=== PATIENT | male | born 1985 | race Two or more races ===

== ENCOUNTER 2025-07-12 09:51 | Emergency (ER) | payer OTHER ==
[~2025-07-12] VITALS: Ht 188 cm; Wt 109.8 kg
[2025-07-12 10:33] VITALS: BP 128/84; O2SAT 97
[2025-07-12] MEDS ORDERED: COUMADIN PO (10:33)
[2025-07-12] MEDS ORDERED: MORPHINE SULFATE 4 MG/ML CARTRIDGE IV ONE ×2 (11:00→14:15)
[2025-07-12] MEDS ORDERED: ONDANSETRON HCL 2 MG/ML VIAL IV ONE (11:00)
[2025-07-12] MEDS ORDERED: FAMOtidine 10 MG/ML (4ML VIAL) IV ONE (11:00)
[2025-07-12] MEDS ORDERED: 0.9 % SODIUM CHLORIDE 1,000 ML IV ONE (11:00)
[2025-07-12] MEDS ORDERED: FAMOTIDINE/PF 20 MG/2 ML VIAL ONE (11:08)
[2025-07-12] MEDS ORDERED: ONDANSETRON HCL 2 MG/ML VIAL ONE (11:08)
[2025-07-12 11:15] LABS: BASO % 0.0 % (0.1-1.2); EOS # 0.00 (0.04-0.54); EOS % 0.0 % (0.7-7.0); LYMPH # 0.44 (1.18-3.74); LYMPH % 4.3 % (19.3-53.1); MEAN PLATELET VOLUME 11.00 fl (9.4-12.4); MONO # 0.54 (0.24-0.82); MONO % 5.3 % (4.7-12.5); NEUT # 9.20 (1.56-6.13); NEUT % 90.1 % (34.0-71.1); RED CELL DISTRIBUTION WIDTH 14.9 % (11.6-14.4)
[2025-07-12 11:45] LABS: ALT/SGPT 39.0 U/L (12-78); AST/SGOT 15.0 U/L (15-37); BILIRUBIN TOTAL 1.07 mg/dL (0.3-1.2); BILIRUBIN,CONJUGATED 0.33 mg/dL (0.0-0.2); BUN CREA RATIO 8.0 (7.0-25.0); CREATININE SERUM 1.08 mg/dL (0.70-1.30); GFR 75.35; GLOBULINA 3.3 G/DL (2.4-3.5); GLUCOSE FASTING 107.0 mg/dL (65-100); OSMOLALITY SERUM 280.0 MOSM/KG (275-295)
[2025-07-12 11:48] LABS: INR 1.76
[2025-07-12 11:48] LABS: URINE APPEARANCE Clear; URINE BILIRRUBIN Negative (NEGATIVE); URINE BLOOD Large; URINE COLOR Yellow; URINE GLUCOSE Negative (NEGATIVE); URINE LEUKOCYTE Negative; URINE NITRATE Negative; URINE PROTEIN Trace (NEGATIVE); URINE UROBILINOGEN 0.2 E.U./dl
[2025-07-12 11:52] LABS: URINE BACTERIA 7.1 uL (0.0-1933); URINE EPITHELIAL CELLS 2.7 uL (0.0-38.8); URINE RBC 46.3 uL (0.0-20.8); URINE WBC 6.4 uL (0.0-23.2)
[2025-07-12 12:22] LABS: URINE CAST 0.73 uL (0.0-1.40); URINE KETONE >=160 (NEGATIVE)
[2025-07-12] MEDS ORDERED: METHYLPREDNISOLONE SOD SUCC 40 MG VIAL ONE (13:30)
[2025-07-12] MEDS ORDERED: DIPHENHYDRAMINE HCL 50 MG/ML VIAL 1ML ONE (13:30)
[2025-07-12] MEDS ORDERED: DIPHENHYDRAMINE HCL 50 MG/ML VIAL 1ML IV ONE (13:45)
[2025-07-12] MEDS ORDERED: METHYLPREDNISOLONE SOD SUCC 40 MG VIAL IV ONE (13:45)
[2025-07-12] MEDS ORDERED: PEPCID AC20 MG PO (14:45)
[2025-07-12] MEDS ORDERED: NORFLEX100MG PO (14:45)
[2025-07-12] MEDS ORDERED: BACTRIM DS TAB1 EACH PO (14:45)
[2025-07-12] MEDS ORDERED: TAMSULOSIN HCL 0.4 MG CAP PO ONE ×2 (14:45→14:55)
[2025-07-12] MEDS ORDERED: TAMS0.4C PO (14:45)
== END 2025-07-12 15:33 | disposition home or self-care (01) ==
LOC: ER 09:51
PROVIDERS: General Practice
DX: N20.0 Calculus of kidney (principal); I10 Essential (primary) hypertension; Z91.040 Latex allergy status